=== PATIENT | male | born 1965 | race Caucasian/White ===

== ENCOUNTER → 2021-10-16 09:54 | Outpatient (CLI) | payer OTHER, SELFPAY ==
--- NOTE | ~2021-10-16 | CT_ITS ---
EXAMINATION: CT pelvis wo con DATE: 10/16/2021 10:11 INDICATION: Incisional hernia pain TECHNIQUE: Computed tomography (CT) of the pelvis was performed without intravenous contrast. The dos e-length product (DLP) was 640.26 mGy-cm. Automated exposure control and iterative reconstruction abdelrahman hnique were employed. COMPARISON: None FINDINGS: There are changes of anterior and posterior fusion at L4-5. There is moderate loss of inter vertebral disc space height at L5-S1. There is a midline scar of the infraumbilical subcutaneous tiss ues at the surgical site. No discrete fluid collection or gas are identified. IMPRESSION: 1. Midline infraumbilical surgical scar without evidence of acute abnormality. Reviewed, dictated and finalized at location A. IS[facility] MELTER
== END ==
DX: L76.82 Other postprocedural complications of skin and subcutaneous tissue (principal); L90.5 Scar conditions and fibrosis of skin
CPT/HCPCS: 72192

== ENCOUNTER 2024-07-18 13:46 | Outpatient (RCR) | payer OTHER, SELFPAY ==
--- NOTE | 2024-07-18 15:06 | OPREHPOC ---
Outpatient Therapy Plan of Care This is a Multidisciplinary Plan of Care that may contain components documented by all disciplines (PT, OT, and ST.) PT Problem 1 PT Problem #1 Knowledge Deficit PT Goal 1 Goal / Goal Update The patient will be independent in a home exercise program. Target Visit 4 PT Problem 2 PT Problem #2 Pain PT Goal 1 Goal / Goal Update The patient will report no greater than 3/10 left knee pain with prolonged standing and walking. Target Visit 8 PT Problem 3 PT Problem #3 Impaired Functional Mobil PT Goal 1 Goal / Goal Update The patient will demonstrate 20% or less self perceived disability per the LEFS questionnaire. Target Visit 8 PT Problem 4 PT Problem #4 Impaired Strength PT Goal 1 Goal / Goal Update The patient will demonstrate 4/5 strength in the left hip and knee muscles to improve standing tolerance. Target Visit 8
--- NOTE | 2024-07-18 15:06 | PTOPEVAL1 ---
Assessment and note entered by Erika Aguilar, PT Evaluation Information Assessment Status Evaluation Diagnosis M17.12 ICD-10 Condition Codes (PT) Pain in left knee M25.562 Onset 07/12/24 Subjective Information Jeff Dey reports 30 years he had a pallet of mirrors go across his left knee and he almost had to have it amputated. He had surgery to reconstruct his knee and has done fairly well with it until the last couple months. He started having pain again in April 2024 for unknown reasons . He went to Dr. Martinez who performed an x-ray that showed osteoarthritis. He was told he will need to have it replaced eventually. Dr. Martinez gave him an injection. The injection was given in his outer knee and now he has pain on the inner knee. He has been using a knee brace while working since April. He notes increased pain when he walks or stands for too long without the brace. He is on permanent restrictions of lifting 30 lbs or less, no twisting, no bending, and limiting bicycle riding and climbing ladders following a L4 -5 fusion. 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 Reported Pain Level Pain Score 4: Self Report Assessment PT Clinical Summary Jeff Dey presents with left medial knee pain with an insidious onset 2 months ago. He has a history of left knee surgery 30 years ago to reconstruct the knee after a pallet of glass mirrors injured his knee. He is having difficulty with standing and walking without a knee brace. He objectively demonstrates decreased quadriceps flexibility, decreased left knee and hip strength, and tenderness on the medial tibial plateau. Knee special tests are negative today. He will benefit from skilled PT to address these limitations. Plan of Care Interventions Electrical Stimulation,Gait Training,Intermittent Compression,Manual Therapy,Neuro Re-education, Patient/Caregiver Educati,Therapeutic Activities, Therapeutic Exercise PT Services Indicated Yes Treatment Frequency and 2 times a week for 4 Duration visits then 1 time a week for 2 weeks for 8 visits total. These treatments will address the objective and functional deficits as defined above. The patient will be advanced safely and appropriately in order for the patient to progress towards his/her prior level of function. Additional exercises will be introduced and as well as a comprehensive home exercise program upon discharge, if needed, ?to ensure carryover of functional gains achieved in the clinic. This treatment plan has been reviewed and agreement upon by the patient.
--- NOTE | 2024-07-26 13:41 | PCPTNOTE ---
Patient called & cancelled scheduled appointment this date due to low back pain. -Erika Aguilar, PT
--- NOTE | 2024-10-16 14:55 | PCPTNOTE ---
10/16/24: Pt only attended 2 skilled PT visits and was last seen 07/24/24. He will be discharged. -Erika Aguilar, PT
== END 2024-07-24 14:45 | disposition home or self-care (01) ==
LOC: CHSPT 13:46
PROVIDERS: Visit Provider Orthopaedic Surgery
DX: M25.562 Pain in left knee (principal); M17.11 Unilateral primary osteoarthritis, right knee
CPT/HCPCS: 97014; 97110; 97161; G0283